=== PATIENT | female | born 2000 | race Hispanic/Latino ===

== ENCOUNTER 2019-07-20 21:37 | Emergency (ER) | payer BC ==
[2019-07-20 22:00] LABS: #Basophils 0.1 thou/uL (0.0-0.2); #Eosinphils 0.4 thou/uL (0.0-0.7); #Lymphocytes 3.9 thou/uL (1.20-3.40); #Monocytes 0.9 thou/uL (0.11-0.59); #Neutrophils 7.8 thou/uL (1.40-6.50); %Basophils 0.5 % (0.0-1.0); %Eosinophils 3.1 % (0.0-10.0); %Lymphocytes 29.6 % (21.0-51.0); %Monocytes 7.1 % (0.0-10.0); %Neutrophils 59.7 % (42.0-75.0); Hemoglobin 14.3 g/dL (12.0-16.0); Mean Corpuscular HGB CONC 32.9 g/dL (32.0-36.0); Mean Corpuscular Hemoglobin 30.4 pg (27.0-31.0); Mean Corpuscular Volume 92.3 fL (78.0-98.0); Mean Platelet Volume 6.8 fL (7.4-10.4); Platelet Count 369 thou/uL (130-400); RBC Distribution Width 11.7 % (11.5-14.5); Red Blood Cell (RBC) Count 4.71 mill/uL (4.20-5.40); White Blood Cell (WBC) Count 13.1 thou/uL (4.8-10.8)
--- NOTE | 2019-07-20 23:56 | ULT ---
Exam: Transabdominal and endovaginal pelvic ultrasound HISTORY:Cramping. Pain. Heavy bleeding. Serum beta hCG 1505 COMPARISON: None TECHNIQUE: Transabdominal and endovaginal imaging of the pelvis is performed. Ovaries are interrogate d with grayscale, color flow, Doppler imaging and spectral wave form analysis FINDINGS: Uterus: No myometrial masses. Uterus measurin.4 x 4.0 x 4.8 cm. Endometrium: Homogeneous echotexture. Endometrium diameter: Endometrial diameter near the uterine fundus is 0.4 cm. Endometrial diameter at the level lower uterine segment (cervix) is 1.4 cm. No evidence of a gestational sac, yolk sac or pole within the endometrium.. Free fluid: None Right ovary: Not appreciated. No obvious masses or fluid in the right adnexa. Left ovary: Normal echotexture. Left ovary measurements: 2.3 x 3.7 x 1.9 cm Ovarian Doppler: There is vascular flow to the left ovary. IMPRESSION: 1. No sonographic evidence of intrauterine gestation. Differential considerations is an early intraut erine versus a missed spontaneous versus a sonographically occult ectopic . 2. Nonspecific thickening of the endometrial stripe at the level lower uterine segment. 3. Follow-up ultrasound and serial beta HCG is recommended
[2019-07-21 00:17] LABS: Pregnancy Test - Urine (BHCG) POSITIVE (Negative); Pregu Control Background? CLEAR/WHITE (CLR/WHITE); Pregu Control Bar Appear? YES (CONTROL BAR); Specific Gravity 1.021 (1.002-1.036)
== END 2019-07-21 00:18 | disposition home or self-care (01) ==
LOC: ERS 21:37
DX: O20.9 Hemorrhage in early pregnancy, unspecified (principal); Z3A.01 Less than 8 weeks gestation of pregnancy
CPT/HCPCS: 36415; 76856; 81025; 84702; 85025; 86900; 86901